=== PATIENT | female | born 1970 ===

== ENCOUNTER 2018-05-15 05:57 | Day surgery (SDC) | payer MEDICAID ==
[2018-05-06 12:21] VITALS: BMI 28.7
[2018-05-15] MEDS ORDERED: ceFAZolin 1 gm in NS 2 GM/200 ML BAG IVPB ONE (07:31)
[2018-05-15] MEDS ORDERED: EPINEPHrine 1:1000 Nasal Sol(30mL) ONE (07:32)
[2018-05-15] MEDS ORDERED: Lidocaine 2% w Epi 1:100,000 Inj IJ ONE (07:32)
[2018-05-15] MEDS ORDERED: Propofol 10 mg/ml Inj (20 ML) ONE (07:38)
[2018-05-15] MEDS ORDERED: Midazolam 2 MG/2 ML VIAL ONE (07:39)
[2018-05-15] MEDS ORDERED: Acetaminophen-Codeine 300/30 mg Tab PO PRN (08:27)
[2018-05-15] MEDS ORDERED: Neostigmine Methylsulfate 3mg/3ml Syringe IV ONE (08:28)
[2018-05-15] MEDS ORDERED: Dextrose 5%/0.45% NS 1,000 ML IV SCH (08:30)
[2018-05-15] MEDS ORDERED: HYDROmorphone 0.5 mg/0.5 ml ISec IVP PRN (08:38)
--- NOTE | 2018-05-15 09:12 | OP ---
PROCEDURE DATE: 05/15/2018 PREOPERATIVE DIAGNOSIS: Sinusitis, deviated septum, large turbinates. POSTOPERATIVE DIAGNOSIS: Sinusitis, deviated septum, large turbinates. PROCEDURE: Endoscopic bilateral maxillary antrostomy, endoscopic bilateral inferior turbinate reduction, and septoplasty. FINDINGS: Deviated septum, large turbinates, sinusitis, maxillary antrum stenosed on both sides. DESCRITPION OF PROCEDURE: The patient was brought into room and placed in supine position. Anesthesia was initiated through an ET tube. The patient was draped in usual manner. Adrenaline-soaked pledgets were inserted through the nasal cavity, they remained there for at least 5 minutes and removed. The patient was draped in the usual manner. The septum was injected with lidocaine with epinephrine on both sides. A Winfall incision was made on the left, and mucoperichondrial flap was raised. A vertical incision was made in the cartilage, leaving a 0.5 cm of the anterior superior strut, and mucoperichondrial flap was raised on the other side. Deviated portion of the bone and cartilage were removed using forceps and chisel. A quilting suture was used to suture the two flaps together and close the Winfall incision. The 0-degree scope was inserted in the nasal cavity. Both inferior turbinates were noted to be enlarged. They were reduced in size using scissors going from an inferior to superior, anterior posterior direction, first on the left, then on the right. Bleeding was controlled using suction cautery. Next, attention was turned to the left. The middle turbinate was injected with lidocaine with epinephrine and medialized. A curved suction was used to locate the maxillary antrum which was noted to be stenosed and opened using forceps. Next, attention was turned to the other side. The middle turbinate was injected with lidocaine with epinephrine and medialized. A curved suction was used to locate the maxillary antrum which was noted to be stenosed and opened using forceps. Stents were placed. The patient was taken off anesthesia and taken to recovery room in stable manner. Guilherme Thompson MD
[2018-05-15 10:14] VITALS: RESP 18
[2018-05-15 10:48] VITALS: BP 120/86; PULSE 89; TEMP 97.7; O2SAT 100
== END 2018-05-15 11:32 | disposition home or self-care (01) ==
LOC: C.SDS 05:57
PROVIDERS: ATTEND Otolaryngology
DX: J34.2 Deviated nasal septum (principal); J34.3 Hypertrophy of nasal turbinates; J32.9 Chronic sinusitis, unspecified
CPT/HCPCS: 30140; 30520; 31256; 88304; J0690; J2001; J2250; J2405; J2704; J2710; J3010